=== PATIENT | male | born 1970 | race Caucasian/White ===

== ENCOUNTER 2020-01-28 14:23 | Outpatient (CLI) | payer OTHER, SELFPAY ==
--- NOTE | ~2020-01-28 | XR_ITS ---
EXAMINATION: XR lumbar spine 6V w bending DATE: 01/28/2020 14:47 INDICATION: Low back pain TECHNIQUE: Anteroposterior, lateral in neutral, flexion and extension, and bilateral oblique views of the lumbar spine, and cone-down lateral view of the lumbosacral junction were obtained. COMPARISON: None. FINDINGS: There appear to be changes of anterior fusion and laminectomy from L3 through L5. Vertebral body alignment is normal. No laxity is present with flexion or extension. There is moderate loss of intervertebral disc space height from T12-L1 through L2-3. No fracture is identified. Small degenerat corrina osteophytes project from the anterior endplates of multiple vertebral bodies. The vertebral body heights are normal. A neurostimulator device is implanted in the posterior subcutaneous tissues on th e left. Its leads entering the spinal canal and coarse into the thoracic spinal canal. Surgical clips in the right upper quadrant are likely from prior cholecystectomy. A moderate volume of colonic stoo l is present. IMPRESSION: 1. Postsurgical changes of the lumbar spine without evidence of acute abnormality. Reviewed, dictated and finalized at location A. IMPRESSION: 1. Postsurgical changes of the lumbar spine without evidence of acute abnormali ty.
== END 2020-01-28 14:24 | disposition home or self-care (01) ==
LOC: ANHIMG 14:30
PROVIDERS: PCP Orthopaedic Surgery; Visit Provider Orthopaedic Surgery
DX: Z98.890 Other specified postprocedural states (principal)
CPT/HCPCS: 72114

== ENCOUNTER 2020-01-31 09:24 | Emergency (ER) | payer OTHER, SELFPAY ==
[2020-01-31 09:38] VITALS: BP 118/97; PULSE 98; RESP 19; TEMP 38.1; O2SAT 96
--- NOTE | 2020-01-31 10:15 | ED.URI ---
HPI - URI/Sore Throat General Chief Complaint: Upper Respiratory Infection Stated Complaint: Fever,Chills Time Seen by Provider: 01/31/20 09:55 Source: patient and RN notes reviewed Mode of arrival: ambulatory Limitations: no limitations History of Present Illness HPI Narrative: Patient presents today complaining of sudden onset body aches, fatigue, chills, sweats, fever up to 103 since this morning when he was driving to work. Denies symptoms last night. Denies cough, congestion, sore throat, ear pain. He received a flu vaccine approximately 3 weeks ago. He took some ibuprofen this morning prior to arrival, which did provide some relief. 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 He called the [facility] department, who told him to go home and quarantine himself. States he called his employer, who requested he come to express care today to rule out influenza. Patient has history of aspiration pneumonitis due to GERD. MD elicited complaint: fever Related Data Home Medications Medication Instructions Recorded Confirmed gabapentin 400 mg PO DIRECTED 01/31/20 01/31/20 hydromorphone 8 mg PO DIRECTED 01/31/20 01/31/20 hydromorphone 16 mg PO DIRECTED 01/31/20 01/31/20 lansoprazole [Prevacid] 15 mg PO DAILY 01/31/20 01/31/20 Allergies Allergy/AdvReac Type Severity Reaction Status Date / Time No Known Allergies Allergy Verified 01/28/20 13:04 Review of Systems Review of Systems: Narrative: CONSTITUTIONAL: + Fever, chills, sweats, body aches EYES: Denies visual changes, redness, or discharge. ENT: Denies rhinorrhea, congestion, sore throat, or otalgia. CARDIOVASCULAR: Denies chest pain, palpitations, or edema. RESPIRATORY: Denies cough or dyspnea. GASTROINTESTINAL: Denies abdominal pain, nausea, vomiting, or diarrhea. GENITOURINARY: Denies dysuria or hematuria. SKIN: Denies rash, itching, or wounds. MUSCULOSKELETAL: Denies back pain, joint pain, or myalgia. NEUROLOGIC: Denies headache, numbness, tingling, or weakness. PSYCH: Denies depression or anxiety. [facility] Past Medical History Medical History (Updated 01/31/20 @ 10:21 by Mela Smith, THERMODYNAMICS ENGINEER, ) GERD (gastroesophageal reflux disease) Surgical History Surgical History (Updated 01/31/20 @ 10:19 by Mela Smith, ASIF, BRIAN) H/O spinal fusion S/P insertion of spinal cord stimulator Comments At time of signature, I have reviewed and agree with nursing past medical, surgical, social and family history unless otherwise noted. Please see nursing chart for further information. There is no relevant family history pertinent to the presenting complaint Exam Narrative: Exam Narrative: GENERAL: Mildly ill-appearing, well-nourished, and in no acute distress. HEAD: Normocephalic, atraumatic. EYES: EOMI. No redness or drainage. Conjunctivae normal. ENT: Mucous membranes pink and moist. Nares clear. No rhinorrhea. TMs normal bilaterally. Throat normal. Uvula midline. NECK: Normal AROM. Supple. No lymphadenopathy. CHEST: No respiratory distress. Clear to auscultation. HEART: Regular rate and rhythm. No murmur appreciated. Normal peripheral pulses. EXTREMITIES: Normal range of motion. No edema. SKIN: Warm, dry, no rash. Mild generalized skin pallor. NEURO: No focal deficits. Alert and oriented x3. Gait steady. PSYCH: Normal affect. No signs of depression or anxiety. Course Vital Signs Vital signs: Vital Signs Temperature 100.5 F H 01/31/20 09:38 Pulse Rate 98 01/31/20 09:38 Respiratory Rate 19 01/31/20 09:38 Blood Pressure 118/97 H 01/31/20 09:38 Pulse Oximetry 96 01/31/20 09:38 Temperature 100.5 F H 01/31/20 09:38 Pulse Rate 98 01/31/20 09:38 Respiratory Rate 19 01/31/20 09:38 Blood Pressure 118/97 H 01/31/20 09:38 Pulse Oximetry 96 01/31/20 09:38 Reviewed. Pt has been instructed to follow up with his PCP regarding his elevated blood pressure today. MARIO - HOLLY/Paolo Ta
== END 2020-01-31 10:32 | disposition home or self-care (01) ==
PROVIDERS: Emergency Provider Nurse Practitioner
DX: R50.9 Fever, unspecified (principal); K21.9 Gastro-esophageal reflux disease without esophagitis; Z96.9 Presence of functional implant, unspecified
CPT/HCPCS: 87804; 99212; G0463

== ENCOUNTER 2020-02-07 14:34 | Emergency (ER) | payer OTHER, SELFPAY ==
--- NOTE | ~2020-02-07 | XR_ITS ---
XR chest 2V DATE: 02/07/2020 15:38 INDICATION: Cough, fever, shortness of breath and chest pain for one week. TECHNIQUE: PA and lateral COMPARISON: 12/25/2019 PA chest FINDINGS: Normal heart size. No hilar or mediastinal enlargement. No pulmonary infiltrate or consol idation, pulmonary vascular congestion or pleural effusion or pneumothorax. Surgical clips overlie the upper abdomen. There is thoracolumbar scoliosis. Spinal leads overlie the lower thoracic spinal canal. IMPRESSION: No active cardiopulmonary disease Reviewed, dictated and finalized at location A.
--- NOTE | ~2020-02-07 | CT_ITS ---
EXAMINATION: CTA chest PE protocol DATE: 02/07/2020 19:32 INDICATION: Shortness of breath and chest pain. TECHNIQUE: Computed tomography angiography (CTA) of the chest was performed with 100 mL Omnipaque-350 intravenous contrast timed to evaluate the pulmonary arteries. Coronal maximum intensity projection 3D-reconstructions were created by the technologist. Automated exposure control and iterative reconst ruction technique were employed. The dose-length product was 830.80 mGy-cm. COMPARISON: Chest 2 views 02/07/2020 FINDINGS: The lungs demonstrate mild atelectasis. There is a 5 mm nodule in left lower lobe, likely b enign. No pleural effusion. The heart size is normal. No pericardial effusion. There is no pulmonary embolus. There is mild left hilar lymphadenopathy, likely reactive. There is a small sliding hiatal h ernia. There are surgical changes of the stomach. There are changes of cholecystectomy. There are epi dural electrodes in thoracic spine. There is thoracic dextroscoliosis and moderate spondylosis. There is severe cervical spondylosis. IMPRESSION: 1. No pulmonary embolus. 2. Small sliding hiatal hernia. Reviewed, dictated and finalized at location A.
[2020-02-07 14:53] VITALS: BP 133/77; PULSE 82; RESP 20; TEMP 36.9; O2SAT 97
--- NOTE | 2020-02-07 15:21 | ECG_ITS ---
Measurements Intervals [place] Rate: 76 P: 246 NH: 138 QRS: -1 QRSD: 101 T: 6 QT: 389 QTc: 439 Interpretive Statements ECTOPIC ATRIAL RHYTHM BORDERLINE R WAVE PROGRESSION, ANTERIOR LEADS BORDERLINE ST-T WAVE ABNORMALITY- INFERIOR LEADS BASELINE ARTIFACT- I, II, III, AVR, AVL, AVF ABNORMAL ECG Electronically Signed On 02-07-2020 16:18:30 CDT by Reg Solano D.O.
[2020-02-07 15:30] LABS: Basophils Percent Auto 0.4 % (0.2-1.2); Eosinophils Absolute Auto 0.1 K/mm3 (0-0.3); Eosinophils Percent Auto 0.7 % (0-4.4); Hematocrit 39.6 % (42.0-52.0); Hemoglobin 12.4 g/dL (14.0-18.0); Immature Granulocyte Absolute 0.01 K/mm3 (0.00-0.031); Immature Granulocyte Percent A 0.1 % (0-0.5); Lymphocytes Absolute Auto 0.72 K/mm3 (0.9-3.2); Lymphocytes Percent Auto 10.3 % (18.3-44.2); Mean Corpuscular HGB Conc 31.3 g/dl (32-36); Mean Corpuscular Volume 95.9 fl (80-100); Mean Platelet Volume 10.2 fl (7.4-10.4); Monocytes Absolute Auto 0.6 K/mm3 (0.1-0.6); Monocytes Percent Auto 7.9 % (2.6-8.5); Neutrophils Absolute Auto 5.6 K/mm3 (1.3-6.7); Neutrophils Percent Auto 80.6 % (45.5-73.1); Platelet Count Result 246 k/mm3 (150-375); Red Blood Count 4.13 M/mm3 (4.6-6.20); Red Cell Distribution Width 13.8 % (11.5-14.5)
[2020-02-07 15:41] LABS: Blood Urea Nitrogen 9 mg/dL (9-20); Calcium 8.7 mg/dL (8.4-10.2); Carbon Dioxide 30 mmol/L (22-30); Chloride 105 mmol/L (98-107); Estimated CRCL calculation 146 ml/min; Estimated Glomerular Filt Rate > 60; Glucose 110 mg/dL (75-110); Potassium 3.9 mmol/L (3.4-5.0); Sodium 138 mmol/L (137-145)
[2020-02-07 15:42] LABS: Lactic Acid 1.6 mmol/L (0.7-2.1)
[2020-02-07 16:53] VITALS: BP 127/86; PULSE 74; TEMP 36.7
[2020-02-07 17:05] VITALS: PULSE 107; RESP 16; O2SAT 97
--- NOTE | 2020-02-07 17:37 | ED.FEVER ---
HPI - Fever General Chief Complaint: Fever Stated Complaint: cough,fever Time Seen by Provider: 02/07/20 16:58 Source: patient Mode of arrival: ambulatory Limitations: no limitations History of Present Illness HPI Narrative: This is a 49 year old male that presents to the ER for fever and cough x 1 week. Reports ongoing fever and cough. Also reports shortness of breath with exertion. Reports some upper/mid chest and back pain that is worse with breathing. Reports some nausea as well. Denies vomiting, abdominal pain, dysuria or hematuria. Related Data Home Medications Medication Instructions Recorded Confirmed gabapentin 400 mg PO DIRECTED 01/31/20 01/31/20 hydromorphone 8 mg PO DIRECTED 01/31/20 01/31/20 hydromorphone 16 mg PO DIRECTED 01/31/20 01/31/20 lansoprazole [Prevacid] 15 mg PO DAILY 01/31/20 01/31/20 Allergies Allergy/AdvReac Type Severity Reaction Status Date / Time No Known Allergies Allergy Verified 01/28/20 13:04 Review of Systems Review of Systems: Narrative: CONSTITUTIONAL: Reports fever ENT: Reports congestion. Denies sore throat CARDIOVASCULAR: Reports chest pain, and edema. RESPIRATORY: Reports cough and dyspnea. GASTROINTESTINAL: Reports nausea. Denies abdominal pain, vomiting, or diarrhea. GENITOURINARY: Denies dysuria or hematuria. MUSCULOSKELETAL: Reports myalgia. All systems reviewed & are unremarkable except as noted in HPI and below PMFSH Past Medical History Medical History (Updated 02/07/20 @ 20:41 by Fabienne Bailey PA-C) GERD (gastroesophageal reflux disease) Surgical History Surgical History (Updated 01/31/20 @ 10:19 by Mela Smith, [facility], ) H/O spinal fusion S/P insertion of spinal cord stimulator Exam Narrative: Exam Narrative: GENERAL: Well-appearing, well-nourished, and in no acute distress. HEAD: Normocephalic, atraumatic. EYES: EOMI. ENT: Nares clear, no rhinorrhea or epistaxis. Mucous membranes moist. Oropharynx without tonsillar hypertrophy exudate or other lesions. Bilateral TMs pearly hernandez non-bulging NECK: Supple. No adenopathy or masses. CHEST: Clear to auscultation. No respiratory distress. Mild rales in the lower lung zones. No wheezes or rhonchi HEART: Regular rate and rhythm. No murmur heard. Normal peripheral pulses. ABDOMEN: Soft, nontender, nondistended, normal active bowel sounds. EXTREMITIES: Normal range of motion. Mild edema to the bilateral lower extremities SKIN: Warm, dry, no rash. NEURO: No focal deficits. Alert and oriented x3. PSYCH: Normal mood and affect Course Consultations Consultation #1: Spoke with Dr. Moise about patient work-up will follow-up in clinic Date: 02/07/20 Time: 20:55 Vital Signs Vital signs: Vital Signs Temperature 98.4 F 02/07/20 14:53 Pulse Rate 82 02/07/20 14:53 Respiratory Rate 20 02/07/20 14:53 Blood Pressure 133/77 02/07/20 14:53 Pulse Oximetry 97 02/07/20 14:53 Temperature 98.1 F 02/07/20 16:53 Pulse Rate 75 02/07/20 19:48 Respiratory Rate 20 02/07/20 19:48 Blood Pressure 124/75 02/07/20 19:48 Pulse Oximetry 98 02/07/20 19:48 MDM - Fever MDM Narrative Medical decision making narrative: Patient presents to the ER for fever and cough x 1 week. He is afebrile and nontoxic appearing. Vitals have been normal. Patient is neurologically intact. CBC is without leukocytosis. It does show a mild normocytic anemia. Metabolic panel is without acute changes. Lactic acid is not elevated. LDH is not elevated. Troponin is not elevated. EKG without concerning ST changes. Chest x-ray is without acute changes. D-dimer was elevated, so CTA chest was obtained. No evidence of pulmonary embolism or pneumonia. Patient does have a small sliding hiatal hernia. Patient's BNP is elevated to 1170. Patient does not report a history of heart failure, but was told recently he should see a preload supervisor to get an echo. He was not sure why. Spoke with patient's primary about wor
[2020-02-07 17:46] LABS: Alveolar/Arterial O2 Gradient 31.7 mmHg; Base Excess ABG 1.8 mEq/l (+/-2.0); Carboxyhemoglobin 0.8 % THb (0-2.0); Fractional Inspired Oxygen 21 %; HCO3 ABG 26.4 mEq/l (22.0-26.0); Methemoglobin ABG 0.1 %THb (0-1.5); Oxygen Content ABG 16.7 %vol (16.0-22.0); Oxygen Saturation ABG 93.9 % (95.0-100.0); Oxyhemoglobin 92.7 % THb (90.0-100.0); PCO2 ABG 41.7 mmHg (35.0-45.0); PO2 ABG 68.1 mmHg (80.0-100.0); PO2 FiO2 Ratio Arterial Blood 3.24 %; Reduced Hemoglobin 6.4 %THb (0-5.0); Total Hemoglobin 12.8 g/dL (12.0-18.0)
[2020-02-07 17:47] LABS: Device ROOM AIR; Site Drawn RIGHT BRACHIAL
[2020-02-07 18:08] LABS: NT Pro B Type Natriuretic Pept 1170 PG/ML (5-100)
[2020-02-07 18:15] LABS: Lactate Dehydrogenase 534 U/L (313-618)
[2020-02-07 18:16] LABS: D Dimer 0.56 ug/mL (<0.48)
[2020-02-07 18:27] LABS: Troponin I < 0.012 ng/mL (0.000-0.034)
[2020-02-07] MEDS: SODIUM CHLORIDE 0.9% IV 500 ML 999 ML IV CONT (18:38)
[2020-02-07] MEDS: ONDANSETRON INJ 4 MG/2 ML VIAL IV PUSH (18:38)
[2020-02-07 19:48] VITALS: BP 124/75; PULSE 75; RESP 20; O2SAT 98
--- NOTE | 2020-02-07 19:48 | PC.NURSE ---
PT RETURNED FROM CT-AWARE OF WAIT FOR CT RESULTS BEFORE DRINKING-VERBAL UNDERSTANDING STATED.
--- NOTE | 2020-02-07 20:08 | PC.NURSE ---
PT GIVEN WATER PER PA
[2020-02-07 21:34] VITALS: BP 125/80; PULSE 76; RESP 20; O2SAT 97
== END 2020-02-07 21:35 | disposition home or self-care (01) ==
PROVIDERS: Emergency Medicine; Physician Assistant; Emergency Provider Emergency Medicine; PCP Internal Medicine
DX: K21.9 Gastro-esophageal reflux disease without esophagitis (principal); Z98.1 Arthrodesis status; K44.9 Diaphragmatic hernia without obstruction or gangrene; B34.9 Viral infection, unspecified; R94.31 Abnormal electrocardiogram [ECG] [EKG]
CPT/HCPCS: 36415; 36600; 71046; 71275; 80048; 82375; 82805; 83050; 83605; 83615; 83880; 84484; 85025; 85380; 87420; 87804; 93005; 96361; 96365; 96375; 99284; J0131; J2405; J7040; Q9967

== ENCOUNTER 2020-02-18 14:37 | Outpatient (CLI) | payer OTHER, SELFPAY ==
[2020-02-18 15:09] LABS: Alanine Aminotransferase 24 U/L (4-50); Albumin Level 4.4 g/dL (3.5-5.1); Alkaline Phosphatase 85 U/L (38-126); Aspartate Amino Transferase 30 U/L (17-59); Bilirubin,Total 0.6 mg/dL (0.2-1.3); Blood Urea Nitrogen 10 mg/dL (9-20); Calcium 9.3 mg/dL (8.4-10.2); Carbon Dioxide 27 mmol/L (22-30); Chloride 106 mmol/L (98-107); Cholesterol 159 mg/dL (0-200); Estimated Glomerular Filt Rate > 60; Glucose 102 mg/dL (75-110); HDL Direct 52 mg/dL; Potassium 4.6 mmol/L (3.4-5.0); Sodium 141 mmol/L (137-145); Triglycerides 127 mg/dL (<150)
[2020-02-18 15:21] LABS: LDL Cholesterol Direct 77 mg/dL
[2020-02-18 15:40] LABS: Prostate Specific Antigen 0.4 ng/mL (< OR = 4.0)
== END 2020-02-18 14:38 | disposition home or self-care (01) ==
PROVIDERS: PCP Physician Assistant; Visit Provider Physician Assistant
DX: Z00.00 Encounter for general adult medical examination without abnormal findings (principal); Z12.5 Encounter for screening for malignant neoplasm of prostate
CPT/HCPCS: 36415; 80053; 80061; 84153; 84443; G0103

== ENCOUNTER 2020-03-03 16:26 | Outpatient (CLI) | payer OTHER, SELFPAY ==
--- NOTE | ~2020-03-03 | XR_ITS ---
EXAMINATION: XR shoulder RT min 2V INDICATION: Right shoulder pain TECHNIQUE: Four views of the right shoulder are submitted. COMPARISON: None FINDINGS: Normal alignment. No fracture. Glenohumeral and acromioclavicular joint spaces are normal. Soft tissues are unremarkable. Neurostimulator leads project over the midthoracic spine. IMPRESSION: No acute osseous abnormality. Reviewed, dictated and finalized at location A.
== END 2020-03-03 16:27 | disposition home or self-care (01) ==
LOC: ANHIMG 16:32
PROVIDERS: PCP Physician Assistant; Visit Provider Physician Assistant
DX: M25.511 Pain in right shoulder (principal); W19.XXXA Unspecified fall, initial encounter
CPT/HCPCS: 73030

== ENCOUNTER 2020-03-11 08:51 | Outpatient (CLI) | payer OTHER, SELFPAY ==
--- NOTE | 2020-03-11 | EST_ITS ---
Patient Info Name: Charli Sanchez Age: 49 years : 1970 Gender: Male Ht: 74 in Wt: 285 lbs BSA: 2.64 m2 Technical Quality: Good Exam Date: 03/11/2020 11:41 AM Exam Location: [facility] Stress Patient Status: Outpatient Admit Date: 03/11/2020 Staff Ordering Physician: Reg Solano DO Attending Provider: Reg Solano DO Exercise Technologist: Robb Smith RDCS, RT Exercise Physician: Reg Solano DO Exam Type: CA stress ravinder w NM Study Info A regadenoson stress test was performed. Summary 1. 1. Negative lexiscan stress test for ischemic ST changes by ECG criteria. 2. 2. Stable hemodynamics throughout the test. 3. 3. Nuclear scan to follow and will be reported separately. Please correlate with it. 4. 4. Patient informed of the above results. Protocol: Lexiscan Stress ECG Details Stage: REST Duration (min): 0 min : 56 sec HR (bpm): 54 SBP (mmHg): 124 DBP (mmHg): 77 Stage: REST Duration (min): 5 min : 22 sec HR (bpm): 58 SBP (mmHg): 124 DBP (mmHg): 77 Stage: STAGE 1 Duration (min): 1 min : 0 sec HR (bpm): 75 SBP (mmHg): 129 DBP (mmHg): 85 Stage: RECOVERY Duration (min): 1 min : 0 sec HR (bpm): 74 SBP (mmHg): 129 DBP (mmHg): 85 Stage: RECOVERY Duration (min): 2 min : 0 sec HR (bpm): 70 SBP (mmHg): 129 DBP (mmHg): 85 Stage: RECOVERY Duration (min): 3 min : 0 sec HR (bpm): 66 SBP (mmHg): 112 DBP (mmHg): 79 Stage: RECOVERY Duration (min): 3 min : 15 sec HR (bpm): 69 SBP (mmHg): 112 DBP (mmHg): 79 Rest HR: 58 bpm Peak HR: 80 bpm Rest Sys BP: 124 mmHg Peak Sys BP: 129 mmHg Max Pred HR: 173 bpm % Max Pred HR: 46 % Target HR: 147 bpm Max RPP: 10,320 bpm*mmHg Termination Reason: Completed protocol Cardiac Symptoms: Vague sensation Total Time: 1 min : 0 sec Rest Mcgrath BP: 77 mmHg Peak Mcgrath BP: 85 mmHg Total Dose: 0.4 mg Resting ECG Sinus rhythm. Stress ECG No ST changes. Arrhythmias None. Report Signatures
--- NOTE | 2020-03-11 | ECHO_ITS ---
Patient Info Name: Charli Sanchez Age: 49 years : 1970 Gender: Male Ht: 74 in Wt: 285 lbs BSA: 2.64 m2 HR: 63 bpm BP: 137 / 85 mmHg Heart Rhythm: Sinus Rhythm Technical Quality: Good Exam Date: 03/11/2020 9:28 AM Exam Location: [facility] Pulmonary Exam Room: echo lab Patient Status: Outpatient Admit Date: 03/11/2020 Staff Ordering Physician: Reg Solano DO Server Engineer: Daniella Khan RDCS Attending Provider: Reg Solano DO Referring Physician: Russ FOREMAN; Exam Type: CA echo doppler color flow Study Info Indications - chest pain Complete two-dimensional, color flow and Doppler transthoracic echocardiogram is performed. Summary 1. Left ventricular chamber dimension is normal. 2. Left ventricular systolic function is normal, estimated at 60-65%. 3. There is moderate asymmetric septal increased left ventricular wall thickness at 1.7 cm and posterior wall thickness at 0.9 cm suggestive of hypertrophic cardiomyopathy. 4. The left ventricular diastolic function is normal. 5. Left atrial chamber dimension is mildly enlarged. 6. There is trace tricuspid valve regurgitation. 7. No pulmonary hypertension, estimated pulmonary arterial systolic pressure is 26 mmHg. 8. There is trace pulmonic regurgitation. Left Ventricle There is moderate asymmetric septal increased left ventricular wall thickness at 1.7 cm and posterior wall thickness at 0.9 cm suggestive of hypertrophic cardiomyopathy. Tissue doppler is not performed. Left ventricular chamber dimension is normal. Left ventricular systolic function is normal, estimated at 60-65%. The left ventricular diastolic function is normal. Right Ventricle Right ventricular chamber dimension is normal. Right ventricular systolic function is normal. Left Atria Left atrial chamber dimension is mildly enlarged. Right Atria Right atrial chamber dimension is normal. Aortic Valve The aortic valve is trileaflet. There is no aortic valve stenosis. There is no aortic valve regurgitation. Pulmonic Valve There is trace pulmonic regurgitation. Mitral Valve There is no mitral valve stenosis. There is no mitral valve regurgitation. Tricuspid Valve There is trace tricuspid valve regurgitation. No pulmonary hypertension, estimated pulmonary arterial systolic pressure is 26 mmHg. Pericardium/Pleural There is no pericardial effusion. Inferior Vena Cava Normal inferior vena cava with >50% collapse upon inspiration consistent with normal right atrial pressure, 5 mmHg. Aorta The aortic root size at the sinus of Valsalva is normal. Left Ventricular Outflow Tract Name Value Normal LVOT 2D LVOT Diameter 2.2 cm LVOT Doppler LVOT Peak Gradient 5 mmHg LVOT Mean Gradient 3 mmHg LVOT VTI 24 cm LVOT VTI/AV VTI Ratio 0.9 LVOT Stroke Volume 90 ml LVOT CO 16.9 l/min LVOT CI 6.4 l/min/m2 Pulmonic Valve
--- NOTE | ~2020-03-11 | NM_ITS ---
EXAMINATION: NM ravinder stress w perfusion DATE: 03/11/2020 12:48 CDT INDICATION: Chest pain TECHNIQUE: Rest images were obtained following intravenous administration of 9.7 mCi Tc99m tetrofosmi n (Myoview). The patient was infused intravenously with Lexiscan (regadenoson). Then, 29.4 mCi Tc99m tetrofosmin (Myoview) was administered intravenously, and stress images were obtained. Data was recon structed into short axis and horizontal and vertical long axis SPECT images. Gated SPECT images were also obtained. COMPARISON: None. FINDINGS: There is no definite reversible or fixed perfusion abnormality to suggest ischemia or infar ction. There is no segmental wall motion abnormality. Left ventricular ejection fraction measures 7 5%. IMPRESSION: 1. No definite ischemia or infarct. 2. Normal left ventricular ejection fraction measuring 75%. Reviewed, dictated and finalized at location A.
== END 2020-03-11 08:52 | disposition home or self-care (01) ==
PROVIDERS: PCP Physician Assistant; Visit Provider Internal Medicine Cardiovascular Disease
DX: R07.9 Chest pain, unspecified (principal); I51.7 Cardiomegaly
CPT/HCPCS: 78452; 93017; 93306; A9502; J2785

== ENCOUNTER 2020-03-27 10:54 | Outpatient (CLI) | payer OTHER, SELFPAY ==
--- NOTE | ~2020-03-27 | MR_ITS ---
EXAMINATION: MR shoulder RT wo con DATE: 03/27/2020 11:52 INDICATION: Traumatic complete tear of right rotator cuff. TECHNIQUE: Magnetic resonance imaging (MRI) of the right shoulder was performed without intravenous c ontrast. Sequences included axial PD-weighted FS FSE, coronal oblique PD-weighted FS FSE and T2-weigh mckenna FS FSE, and sagittal oblique T2-weighted FS FSE and T1-weighted FSE. COMPARISON: Right shoulder radiographs 03/03/2020 FINDINGS: Coracoacromial arch: The acromion undersurface is curved in morphology with anterior hook (type III). There is moderate ac romial clavicular joint osteoarthritis. There is moderate subacromial/subdeltoid bursitis. Rotator cuff: There is severe supraspinatus and anterior infraspinatus tendinopathy. There is a near full-thickness tear of supraspinatus tendon at its distal insertion measuring 1.7 cm anterior to posterior by 0.2 c m proximal to distal. The articular-sided component of the tear is larger and measures 3.3 cm proxima l to distal. Teres minor tendon is normal. There is severe subscapularis tendinopathy with a partial- thickness tear. Biceps tendon and glenoid labrum: Biceps tendon is in bicipital groove. There is a complete tear of proximal biceps tendon. There is re sidual torn tendon in the bicipital groove. The glenoid labrum is intact. Fluid: There is a small glenohumeral joint effusion. Bones/cartilage: Glenoid cartilage is normal. There is cartilage surface irregularity of the humeral head with tiny os teophytes. IMPRESSION: 1. Near full-thickness rotator cuff tear. 2. Mild glenohumeral joint chondrosis. 3. Moderate acromioclavicular joint osteoarthritis. 4. Small glenohumeral joint effusion. 5. Moderate subacromial/subdeltoid bursitis. 6. Complete tear of proximal biceps tendon. Reviewed, dictated and finalized at location A.
== END 2020-03-27 10:55 | disposition home or self-care (01) ==
PROVIDERS: PCP Physician Assistant
DX: S46.011A Strain of muscle(s) and tendon(s) of the rotator cuff of right shoulder, initial encounter (principal); S46.211A Strain of muscle, fascia and tendon of other parts of biceps, right arm, initial encounter; M19.011 Primary osteoarthritis, right shoulder; M25.411 Effusion, right shoulder; M75.51 Bursitis of right shoulder; X58.XXXA Exposure to other specified factors, initial encounter
CPT/HCPCS: 73221

== ENCOUNTER 2021-04-06 14:55 | Outpatient (CLI) | payer OTHER, SELFPAY ==
[2021-04-09 12:54] LABS: NIL 0.01 IU/mL; Quantiferon TB Plus, 1T NEGATIVE (NEGATIVE)
== END 2021-04-06 14:56 | disposition home or self-care (01) ==
PROVIDERS: PCP Internal Medicine; Visit Provider Physician Assistant
DX: Z11.1 Encounter for screening for respiratory tuberculosis (principal)
CPT/HCPCS: 36415; 86480

== ENCOUNTER 2021-05-03 11:06 | Outpatient (CLI) | payer OTHER, SELFPAY ==
[2021-05-03 11:56] LABS: Alanine Aminotransferase 24 U/L (4-50); Albumin Level 4.7 g/dL (3.5-5.1); Alkaline Phosphatase 110 U/L (38-126); Anion Gap 8 mmol/L (8-16); Aspartate Amino Transferase 30 U/L (17-59); Bilirubin,Total 0.7 mg/dL (0.2-1.3); Blood Urea Nitrogen 20 mg/dL (9-20); CRP < 0.5 mg/dL (<1.0); Calcium 9.3 mg/dL (8.4-10.2); Carbon Dioxide 28 mmol/L (22-30); Chloride 106 mmol/L (98-107); Estimated Glomerular Filt Rate > 60; Glucose 102 mg/dL (75-110); Potassium 4.1 mmol/L (3.4-5.0); Sodium 142 mmol/L (137-145)
[2021-05-03 11:57] LABS: Hemoglobin A1C 5.6 % (<5.7)
[2021-05-10 08:27] LABS: Estrogen 165.1 pg/mL (60-190)
== END 2021-05-03 11:07 | disposition home or self-care (01) ==
LOC: ANHLAB 11:09
PROVIDERS: PCP Internal Medicine; Visit Provider Physician Assistant
DX: M54.9 Dorsalgia, unspecified (principal); E66.9 Obesity, unspecified
CPT/HCPCS: 36415; 80053; 82672; 83036; 86140

== ENCOUNTER 2021-05-10 10:40 | Outpatient (CLI) | payer OTHER, SELFPAY ==
[2021-05-10 12:06] LABS: Free T4 Free Thyroxine 1.18 ng/mL (0.78-2.19)
== END 2021-05-10 10:41 | disposition home or self-care (01) ==
LOC: ANHLAB 10:43
PROVIDERS: PCP Internal Medicine; Visit Provider Physician Assistant
DX: E03.9 Hypothyroidism, unspecified (principal)
CPT/HCPCS: 36415; 84439; 84443